=== PATIENT | male | born 1950 | race Caucasian/White ===

== ENCOUNTER → 2016-09-02 | Outpatient (REF) ==
[~2016-09-02] MED LIST: ASPIRIN 32325 MG/TAB PO; BYSTOLIC2.5 MG PO; CELEBREX 200MG200 MG PO; COUMADIN 2MG2 MG/TAB PO; DULCOLAX S10 MG/SUPP; ELIQUIS 5MG PO; FLEXERIL 1010 MG/TAB PO; FOLIC ACID0.4 MG PO; IRON324 M1 PO; LOVENOX 4040 MG/0.4 SQ; MILK OF MA400 MG/5 M PO; MOBIC 7.5MG7.5 MG PO; NORCO 325 MG-51 TAB PO; NORCO 325 MG-7.1 TAB PO; PRINIVIL10 MG PO; ROXICODONE 55 MG/TAB PO; SENOKOT8.6 MG PO; SOMA 350MG350 MG/TAB PO; TOPROL XL 25MG25 MG PO; TYLENOL 500MG500 MG PO; TYLENOL ARTHRI650 M1 PO; ULTRAM 50MG TAB50 MG PO; VITAMIN C500 MG PO; ZOCOR 10MG10 MG PO
[2016-09-02 12:01] LABS: THYROID STIMULATING HORMONE 0.818 uIU/mL (0.465-4.680)
== END ==
LOC: ZLAB.WCH 10:56
PROVIDERS: Family Medicine
DX: Z01.89 Encounter for other specified special examinations (principal)

== ENCOUNTER → 2016-11-18 | Outpatient (REF) | LOC: ZLAB.WCH 13:26 | DX: Z01.89 Encounter for other specified special examinations (principal) ==

== ENCOUNTER → 2016-11-30 | Outpatient (CLI) | payer BC, MEDICARE | LOC: COL.RAD 07:43 | DX: M25.512 Pain in left shoulder (principal) | CPT/HCPCS: J3301; Q9967 ==

== ENCOUNTER → 2016-12-22 | Outpatient (CLI) | payer BC, MEDICARE ==
[2016-12-22 22:17] LABS: SYNOVIAL FL. MONONUCLEAR 79.4 % (0-75); SYNOVIAL FL. POLYMORPHONUCLEAR 20.6 % (0-25); SYNOVIAL FLUID WBC 39 /mm3 (200-600)
[2016-12-23 06:13] LABS: SYNOVIAL FLUID APPEARANCE HAZY; SYNOVIAL FLUID COLOR AMBER
== END ==
LOC: ZCOL.LAB 16:25
PROVIDERS: Orthopaedic Surgery
DX: M25.561 Pain in right knee (principal)

== ENCOUNTER → 2016-12-22 | Outpatient (CLI) | payer BC, MEDICARE | LOC: COL.RAD 14:50 | DX: M25.561 Pain in right knee (principal) ==

== ENCOUNTER → 2016-12-29 | Outpatient (CLI) | payer BC, MEDICARE | LOC: COL.RAD 07:41 | DX: M25.511 Pain in right shoulder (principal) | CPT/HCPCS: J3301; Q9967 ==

== ENCOUNTER 2017-01-21 13:49 | Inpatient (IN) | payer BC, MEDICARE ==
[~2017-01-21] VITALS: Ht 183 cm; Wt 112.8 kg
[~2017-01-21 13:49] MED LIST changes: -ELIQUIS 5MG PO; -LOVENOX 4040 MG/0.4 SQ; -TOPROL XL 25MG25 MG PO
[2017-02-03] MEDS ORDERED: LOVENOX 4040 MG/0.4 SQ (16:45)
[2017-02-03] MEDS ORDERED: TOPROL XL 25MG25 MG PO (16:46)
[2017-02-07] VITALS (10 sets, daily range): BP systolic 132–153; BP diastolic 54–76; PULSE 50–83; TEMP 98–98.3
[2017-02-07] MEDS ORDERED: CELEBREX 200MG200 MG PO (08:41)
[2017-02-07] MEDS ORDERED: ELIQUIS 5MG PO (08:41)
[2017-02-07 13:22] LABS: SYNOVIAL FL. MONONUCLEAR 81.8 % (0-75); SYNOVIAL FL. POLYMORPHONUCLEAR 18.2 % (0-25); SYNOVIAL FLUID WBC 44 /mm3 (200-600)
[2017-02-07 16:00] LABS: SYNOVIAL FLUID APPEARANCE HAZY; SYNOVIAL FLUID COLOR AMBER
[2017-02-07 16:39] LABS: BASO % 0.1 % (0.0-2.0); EOS # 0.1 (0.0-0.7); EOS % 0.7 % (0-4.0); GRAN # 4.7 (1.4-6.5); GRAN % 67.7 % (42.2-75.2); HEMATOCRIT 37.5 % (42.0-52.0); HEMOGLOBIN 12.2 g/dl (13.5-18.0); LYMPH # 1.4 (1.2-3.4); LYMPH % 20.2 % (20.0-51.0); MEAN CELL VOLUME 97 fl (80.0-100.0); MEAN CORPUSCULAR HEMOGLOBIN 32 pg (27.0-31.0); MEAN CORPUSCULAR HGB CONC 33 g/dl (33.0-37.0); MEAN PLATELET VOLUME 9.6 fl (7.4-10.4); MONO # 0.8 (0.1-0.6); PLATELET COUNT 111 K/mm3 (130-400); RED BLOOD COUNT 3.87 M/mm3 (4.20-5.60); REDCELL DISTRIBUTION WIDTH-CV 13.5 % (11.5-14.5); WHITE BLOOD COUNT 6.9 K/mm3 (4.8-10.8)
[2017-02-07 17:10] LABS: ERYTHROCYTE SEDIMENTATION RATE 6 mm/hr (0-30)
[2017-02-07 17:11] LABS: ADJUSTED CALCIUM 9.1 mg/dL (8.4-10.2); ALBUMIN 3.5 gm/dL (3.5-5.0); BILIRUBIN,TOTAL 0.4 mg/dL (0.0-1.0); CALCIUM 8.7 mg/dL (8.4-10.2); CREATININE, serum 0.59 mg/dL (0.66-1.25); TOTAL PROTEIN 5.8 gm/dL (6.4-8.2)
[2017-02-08 00:07] VITALS: BP 123/44; PULSE 67; TEMP 98
[2017-02-08 04:00] VITALS: BP 137/62; PULSE 57; TEMP 98.1
[2017-02-08 06:17] LABS: HEMATOCRIT 37.8 % (42.0-52.0); HEMOGLOBIN 12.5 g/dl (13.5-18.0)
[2017-02-08 08:15] VITALS: BP 146/69; PULSE 74; TEMP 98.5
[2017-02-08 11:30] VITALS: BP 114/73; PULSE 71; TEMP 98.4
[2017-02-08 16:15] VITALS: BP 135/52; PULSE 76; TEMP 98.5
[2017-02-08 20:03] VITALS: BP 161/50; PULSE 83; TEMP 98.4
[2017-02-09] VITALS: BP 148/62; PULSE 77; TEMP 98.2
[2017-02-09 06:04] VITALS: BP 160/65; PULSE 72; TEMP 97.8
[2017-02-09 06:55] LABS: HEMATOCRIT 38.7 % (42.0-52.0); HEMOGLOBIN 12.8 g/dl (13.5-18.0)
[2017-02-09 09:06] VITALS: BP 150/64; PULSE 105; TEMP 98.8
[2017-02-09 13:16] VITALS: BP 130/65; PULSE 92
== END 2017-02-09 17:15 | disposition home or self-care (01) | DRG 465 ==
LOC: SURG 02-07 07:30 → JCC 02-07 07:30 → SURG 02-07 14:00 → JCC 02-09 07:30
PROVIDERS: Internal Medicine Infectious Disease; Orthopaedic Surgery
PROC: 0SUC09Z Supplement Right Knee Joint with Liner, Open Approach (ICD-10-PCS; 2017-02-07)
PROC: 0SBC0ZX Excision of Right Knee Joint, Open Approach, Diagnostic (ICD-10-PCS; 2017-02-07)
PROC: 0SPC09Z Removal of Liner from Right Knee Joint, Open Approach (ICD-10-PCS; principal; 2017-02-07 14:00)
DX: T84.53XA Infection and inflammatory reaction due to internal right knee prosthesis, initial encounter (principal); I10 Essential (primary) hypertension; Z87.891 Personal history of nicotine dependence
CPT/HCPCS: A4315; A9284; C1776; J0690; J0696; J1170; J1644; J2250; J2270; J2704; J3010; J3370; J7050; J7120

== ENCOUNTER 2017-02-03 14:04 | Outpatient (CLI) | payer BC, MEDICARE ==
[~2017-02-03] VITALS: Ht 182.9 cm; Wt 118.0 kg
[2017-02-03 14:00] VITALS: BP 151/69; PULSE 72; TEMP 98.2
[2017-02-03] MEDS ORDERED: LOVENOX 4040 MG/0.4 SQ (16:45)
[2017-02-03] MEDS ORDERED: TOPROL XL 25MG25 MG PO (16:46)
[2017-02-04 12:40] VITALS: BP 121/67; PULSE 70; TEMP 97.2
== END 2017-02-04 15:00 | disposition home or self-care (01) ==
LOC: EUO 14:04
DX: Z45.2 Encounter for adjustment and management of vascular access device (principal)
CPT/HCPCS: C1751; C1894; J1644

== ENCOUNTER → 2017-02-16 | Outpatient (REF) ==
[~2017-02-16] MED LIST changes: +ELIQUIS 5MG PO; +LOVENOX 4040 MG/0.4 SQ; +TOPROL XL 25MG25 MG PO
== END ==
LOC: ZLAB.WCH 18:14
DX: Z01.89 Encounter for other specified special examinations (principal)

== ENCOUNTER → 2017-02-23 | Outpatient (REF) | LOC: ZLAB.WCH 18:09 | DX: Z01.89 Encounter for other specified special examinations (principal) ==

== ENCOUNTER → 2017-03-02 | Outpatient (REF) | LOC: ZAIV 03-01 06:50 | DX: Z02.89 Encounter for other administrative examinations (principal) ==

== ENCOUNTER → 2017-03-02 | Outpatient (REF) | LOC: ZLAB.WCH 18:10 | DX: Z01.89 Encounter for other specified special examinations (principal) ==

== ENCOUNTER → 2017-03-09 | Outpatient (REF) | LOC: ZLAB.WCH 11:14 | DX: Z01.89 Encounter for other specified special examinations (principal) ==

== ENCOUNTER → 2017-03-16 | Outpatient (REF) | LOC: ZLAB.WCH 18:02 | DX: Z01.89 Encounter for other specified special examinations (principal) ==

== ENCOUNTER → 2017-03-23 | Outpatient (REF) | LOC: ZLAB.WCH 18:00 | DX: Z02.89 Encounter for other administrative examinations (principal) ==

== ENCOUNTER → 2017-04-19 | Outpatient (REF) | LOC: ZLAB.WCH 10:37 | DX: Z01.89 Encounter for other specified special examinations (principal) ==

== ENCOUNTER → 2017-04-19 | Outpatient (CLI) | payer BC, MEDICARE | LOC: COL.RAD 07:27 | DX: M19.011 Primary osteoarthritis, right shoulder (principal) | CPT/HCPCS: J3301; Q9967 ==

== ENCOUNTER → 2017-10-12 | Outpatient (REF) | LOC: ZLAB.WCH 17:59 | DX: Z01.89 Encounter for other specified special examinations (principal) ==

== ENCOUNTER → 2018-02-22 | Outpatient (REF) | LOC: ZLAB.WCH 15:54 | DX: Z01.89 Encounter for other specified special examinations (principal) | CPT/HCPCS: G0103 ==

== ENCOUNTER → 2018-05-02 | Outpatient (REF) | LOC: ZLAB.WCH 15:51 | DX: Z01.89 Encounter for other specified special examinations (principal) ==

== ENCOUNTER → 2018-07-13 | Outpatient (REF) | LOC: ZLAB.WCH 18:00 | DX: Z01.89 Encounter for other specified special examinations (principal) ==

== ENCOUNTER → 2018-07-17 | Outpatient (CLI) | payer BC, MEDICARE ==
[2018-07-17 12:05] LABS: SYNOVIAL FL. MONONUCLEAR 77.3 % (0-75); SYNOVIAL FLUID RBC 2000 /mm3 (0-0); SYNOVIAL FLUID WBC 167 /mm3 (200-600)
[2018-07-17 12:09] LABS: SYNOVIAL FLUID APPEARANCE HAZY; SYNOVIAL FLUID COLOR YELLOW
== END ==
LOC: ZCOL.LAB 10:35
PROVIDERS: Orthopaedic Surgery
DX: M25.561 Pain in right knee (principal)

== ENCOUNTER → 2019-06-28 | Outpatient (CLI) | payer BC, MEDICARE ==
[2019-06-28 18:28] LABS: SYNOVIAL FL. MONONUCLEAR 64.5 % (0-75); SYNOVIAL FLUID RBC 2000 /mm3 (0-0); SYNOVIAL FLUID WBC 62 /mm3 (200-600)
[2019-06-28 18:29] LABS: SYNOVIAL FLUID APPEARANCE CLEAR; SYNOVIAL FLUID COLOR YELLOW
== END ==
LOC: ZCOL.LAB 15:28
PROVIDERS: Orthopaedic Surgery
DX: M25.561 Pain in right knee (principal)

== ENCOUNTER 2020-11-11 08:25 | Day surgery (SDC) | payer BC, MEDICARE ==
[~2020-11-11] VITALS: Ht 182.9 cm; Wt 120.2 kg
[2020-11-11] MEDS ORDERED: ELIQUIS 2.5 PO (09:43)
[2020-11-11] MEDS ORDERED: CARDENE 20MG CA20 M1 PO (09:52)
[2020-11-11] MEDS ORDERED: ASPIRIN 81M81 MG/TA2 PO (09:53)
[2020-11-11 10:30] VITALS: BP 160/80; PULSE 75; TEMP 98.9
[2020-11-11 11:00] VITALS: BP 121/72; PULSE 69; TEMP 98.5
[2020-11-11 11:15] VITALS: BP 130/74; PULSE 66
[2020-11-11 11:30] VITALS: BP 128/64; PULSE 74
--- NOTE | 2020-11-11 12:22 | NUR ---
PT RETURNED FROM ENDO PROCEDURE ROOM PER CART INTO BAY#6. PT IS ALERT AND ORIENTATED. AMBULATED TO RECLINER X2 ASSIST. PT TOLERATED ACTIVITY WELL. PT LUNGS CLEAR AND DIMINISHED. HRR, BOWEL SOUNDS PRESENT AND ACTIVE. PT REQUESTS PLAIN BLACK COFFEE, BLUEBERRY MUFFIN AND WATER. PT DENIES NAUSEA AND PAIN AT THIS TIME. WILL CONT TO MONITOR PROGRESS.
--- NOTE | 2020-11-11 12:29 | NUR ---
PT RECLINED IN CHAIR, IVF PATENT AND RUNNING. PT TOLERATING PO'S WITHOUT DIFFICULTY. DENIES NAUSEA, VOMITING OR PAIN AT THIS TIME. CALL LIGHT IN REACH. WILL PREPARE FOR DISCHARGE.
--- NOTE | 2020-11-11 12:31 | NUR ---
PT ALERT AND ORIENTATED X3. DISMISSAL INSTRUCTIONS EXPLAINED AND SIGNED PT VOICES UNDERSTANDING. IV TO LEFT FOREARM DC'D WITHOUT DIFFICULTY. PRESSURE DRESSING APPLIED. PT WAS DISMISSED WITH DISCHARGE INSTRUCTIONS AND PERSONAL BELONGINGS TO THROUGH THE PATIENT ENTRANCE VIA WC. GRANDDAUGHTER, TERI WAS DRIVING.
== END 2020-11-11 12:00 | disposition home or self-care (01) ==
LOC: SDCO 08:25
DX: K92.1 Melena (principal); K62.1 Rectal polyp; D12.3 Benign neoplasm of transverse colon; K29.30 Chronic superficial gastritis without bleeding; K25.9 Gastric ulcer, unspecified as acute or chronic, without hemorrhage or perforation; K57.30 Diverticulosis of large intestine without perforation or abscess without bleeding; I10 Essential (primary) hypertension; I26.99 Other pulmonary embolism without acute cor pulmonale; I82.409 Acute embolism and thrombosis of unspecified deep veins of unspecified lower extremity; Z95.5 Presence of coronary angioplasty implant and graft; M19.90 Unspecified osteoarthritis, unspecified site; Z87.891 Personal history of nicotine dependence; Z86.010 Personal history of colon polyps; Z86.711 Personal history of pulmonary embolism; Z20.822 Contact with and (suspected) exposure to COVID-19; Z79.01 Long term (current) use of anticoagulants; Z79.899 Other long term (current) drug therapy; Z79.02 Long term (current) use of antithrombotics/antiplatelets; Z83.3 Family history of diabetes mellitus; Z80.9 Family history of malignant neoplasm, unspecified
CPT/HCPCS: J2704; J3010

== ENCOUNTER → 2020-12-30 | Outpatient (CLI) | payer BC, MEDICARE ==
[~2020-12-30] MED LIST changes: +ASPIRIN 81M81 MG/TA2 PO; +CARDENE 20MG CA20 M1 PO; +ELIQUIS 2.5 PO
[2020-12-30 12:53] LABS: BASO % 0.4 % (0.0-2.0); EOS # 0.1 (0.0-0.7); EOS % 1.7 % (0-4.0); GRAN # 3.2 (1.4-6.5); GRAN % 59.5 % (42.2-75.2); HEMATOCRIT 42.5 % (42.0-52.0); HEMOGLOBIN 13.8 g/dl (13.5-18.0); LYMPH # 1.4 (1.2-3.4); LYMPH % 25.7 % (20.0-51.0); MEAN CELL VOLUME 96 fl (80.0-100.0); MEAN CORPUSCULAR HEMOGLOBIN 31 pg (27.0-31.0); MEAN CORPUSCULAR HGB CONC 33 g/dl (33.0-37.0); MONO # 0.7 (0.1-0.6); MONO % 12.5 % (1.7-9.3); PLATELET COUNT 183 K/mm3 (130-400); RED BLOOD COUNT 4.45 M/mm3 (4.20-5.60); REDCELL DISTRIBUTION WIDTH-CV 13.3 % (11.5-14.5)
[2020-12-30 13:15] LABS: ERYTHROCYTE SEDIMENTATION RATE 8 mm/hr (0-30)
[2020-12-30 16:43] LABS: SYNOVIAL FL. MONONUCLEAR 57.7 % (0-75); SYNOVIAL FLUID RBC 67000 /mm3 (0-0); SYNOVIAL FLUID WBC 149 /mm3 (200-600)
[2020-12-31 08:59] LABS: SYNOVIAL FLUID APPEARANCE BLOODY; SYNOVIAL FLUID COLOR RED
== END ==
LOC: COL.LAB 12:00
PROVIDERS: Orthopaedic Surgery
DX: Z11.9 Encounter for screening for infectious and parasitic diseases, unspecified (principal)